=== PATIENT | female | born 1955 | race Caucasian/White ===

== ENCOUNTER 2019-09-03 11:50 | Day surgery (SDC) | payer OTHER, SELFPAY ==
--- NOTE | 2019-09-03 | PATH_ITS ---
[facility] Accession Number: [id number] . 01 Material submitted: . colon - DESCENDING COLON POLYP . 02 Diagnosis: Descending Colon, Polyp: Hyperplastic polyp. MRV 09/04/2019 1010 Local . 02 Electronically signed: . Destin Hernandez MD, PhD, Pathologist NPI- [id number] . 01 Gross description: . DESCENDING COLON POLYP: Received in formalin is 1 fragment(s) of negrete, soft tissue measuring 0.2 x 0.2 x 0.2 cm submitted entirely in 1 cassette(s) /[facility] 09/03/2019 2040 Local . 02 Pathologist provided ICD-10: K63.5 . 02 CPT . 897565 Performed at: 01 [facility] [address] [id number] MD Heriberto Cerda MD Phone: [phone] Performed at: 02 [facility] [place] [address] [place], [place] [id number] MD Yudelka Ortega MD Phone: [phone]
[2019-09-03 12:16] VITALS: BP 153/85; PULSE 71; RESP 16; TEMP 36.5; O2SAT 94; BMI 32.1
[2019-09-03] MEDS: SODIUM CHLORIDE 0.9% 1,000 ML 200 ML IV (12:22)
[2019-09-03] MEDS: MIDAZOLAM 5 MG/ML VIAL IV ×2 (13:13→13:25)
[2019-09-03] MEDS: fentaNYL 250 MCG/5 ML INJ IV (13:13)
--- NOTE | 2019-09-03 13:20 | PM.PREOP ---
Pre-operative Note Interval Note History & Physical reviewed/Exam performed by Physician: Yes Changes to H&P: No ASA Class (for procedural sedation): II
--- NOTE | 2019-09-03 13:41 | PM.OP.ENDO ---
Operative Date/Time/Diagnoses Date of procedure: 09/03/19 Procedure & Clinicians Study performed: Aborted EGD Moderate conscious sedation was administered by the endoscopy nurse and supervised by the endoscopist. The following parameters were monitored: Oxygen saturation, heart rate, blood pressure, and response to care. Sedation total: 6 mg midazolam, 100 mcg fentanyl Indications: Iron deficiency anemia, history of GERD Procedure Notes Procedure in detail: Prior to the procedure, history and physical was performed, and patient medications and allergies were reviewed. Preprocedure nursing history and assessment was reviewed. Patient identification and proposed procedure were verified by the physician and nurse in the procedure room. The physical status of the patient was reassessed after the procedure. After informed consent was obtained including risks, benefits, and alternatives, the scope was passed under direct vision. Throughout the procedure, the patient's blood pressure, pulse, and oxygen saturations were monitored continuously. The upper endoscope was introduced through the mouth and advanced to the body of the stomach. Retroflexion was performed in the stomach. The patient tolerated the procedure, but there was significant gagging and agitation during the EGD An irregular squamocolumnar junction was noted in the distal esophagus. The Z-line was located at 33 cm from the incisors. A large hiatal hernia was noted. A non bleeding erosion was noted in the fundus/body. Retroflexion revealed possible paraesophageal hernia. There was difficulty advancing the scope beyond the diaphragmatic pinch at the gastric body. A J-shaped configuration was noted. At this point, the procedure was aborted Impression: Irregular Z-line Large hiatal hernia. Possible coexistent paraesophageal hernia Non bleeding gastric erosion, possibly representing a Cole's erosion The distal stomach and duodenum were not evaluated Complications: other (No EBL. No complications) Post-procedure Plan for aftercare: Perform barium esophagram Repeat EGD with monitored anesthesia care Procedure with colonoscopy today
[2019-09-03 13:43] VITALS: BP 126/65; PULSE 72; RESP 17; TEMP 36.6; O2SAT 94
--- NOTE | 2019-09-03 13:47 | PM.OP.ENDO ---
Operative Date/Time/Diagnoses Date of procedure: 09/03/19 Procedure & Clinicians Study performed: Colonoscopy with cold biopsy Moderate conscious sedation was administered by the endoscopy nurse and supervised by the endoscopist. The following parameters were monitored: Oxygen saturation, heart rate, blood pressure, and response to care. Sedation total: 2 mg midazolam, 50 mcg fentanyl, plus medications given during EGD Indications: Iron deficiency anemia, personal history of colon polyps, last colonoscopy was in 2018 Procedure Notes Procedure in detail: Prior to the procedure, history and physical was performed, and patient medications and allergies were reviewed. Preprocedure nursing history and assessment was reviewed. Patient identification and proposed procedure were verified by the physician and nurse in the procedure room. The physical status of the patient was reassessed after the procedure. After informed consent was obtained including risks, benefits, and alternatives, the scope was passed under direct vision. Throughout the procedure, the patient's blood pressure, pulse, and oxygen saturations were monitored continuously. The colonoscope was introduced through the anus and advanced to the cecum as identified by the appendiceal orifice and ileocecal valve. The patient tolerated the procedure well. Bowel prep was deemed adequate to detect polyps greater than 5 mm. Perianal and digital rectal examinations were unremarkable. Retroflexion in the rectum was unrevealing. Scattered medium mouth diverticula were noted in the sigmoid colon. A 3 mm sessile polyp in the descending colon was removed with the Jumbo biopsy forceps and retrieved Impression: 3 mm descending colon polyp removed Sigmoid colon diverticulosis Sedation minutes: 28 Complications: other (EBL minimal. No complications) Post-procedure Plan for aftercare: Follow-up pathology results Repeat colonoscopy in 5 years for screening purposes Resume home medications High fiber diet Patient has a contact number available for emergencies. The signs and symptoms of potential delayed complications were discussed with the patient. Return to normal activities tomorrow. Written discharge instructions were provided to the patient. Discharge home with escort
[2019-09-03 13:48] VITALS: BP 113/65; PULSE 75; RESP 19; O2SAT 93
[2019-09-03 13:53] VITALS: BP 125/72; PULSE 73; RESP 13; TEMP 36.6; O2SAT 93
[2019-09-03 14:03] VITALS: BP 118/65; PULSE 69; RESP 18; O2SAT 93
[2019-09-03 14:36] VITALS: BP 121/72; PULSE 65; RESP 17; TEMP 36.6; O2SAT 97
== END 2019-09-03 14:39 | disposition home or self-care (01) ==
PROVIDERS: PCP Nurse Practitioner; Referring Provider Internal Medicine; Visit Provider Internal Medicine
PROC: 0DJ08ZZ Inspection of Upper Intestinal Tract, Via Natural or Artificial Opening Endoscopic (ICD-10-PCS; CPT 43235; principal; 2019-09-03 13:00)
PROC: 0DJD8ZZ Inspection of Lower Intestinal Tract, Via Natural or Artificial Opening Endoscopic (ICD-10-PCS; CPT 45378; 2019-09-03 13:00)
DX: Z12.11 Encounter for screening for malignant neoplasm of colon (principal); Z86.010 Personal history of colon polyps; K57.30 Diverticulosis of large intestine without perforation or abscess without bleeding; D50.9 Iron deficiency anemia, unspecified; K63.5 Polyp of colon; K44.9 Diaphragmatic hernia without obstruction or gangrene
CPT/HCPCS: 45380; 43235; J2250; J3010

== ENCOUNTER → 2020-02-08 09:49 | Outpatient (CLI) | payer MEDICARE, OTHER, SELFPAY ==
[2020-02-09 21:16] LABS: COVID19 Sendout Not Detected (Not Detect)
== END ==
PROVIDERS: PCP Nurse Practitioner; Visit Provider Physician Assistant
DX: Z11.59 Encounter for screening for other viral diseases (principal)
CPT/HCPCS: 87635

== ENCOUNTER 2020-02-11 12:52 | Day surgery (SDC) | payer MEDICARE, OTHER, SELFPAY ==
--- NOTE | 2020-02-11 | PATH_ITS ---
[facility] Accession Number: [id number] . 01 Material submitted: . gastrointestinal site - GASTRIC POLYP . 02 Diagnosis: Stomach, Polyp, Biopsy: Fundic gland polyp. No evidence of Helicobacter on H/E stain. Negative for intestinal metaplasia. Negative for dysplasia and malignancy. MRV 02/13/2020 1001 Local . 02 Electronically signed: . Yudelka Ortega MD, Pathologist NPI- [id number] . 01 Gross description: . GASTRIC POLYP: Received in formalin are 3 fragment(s) of negrete, soft tissue measuring 0.3 x 0.3 x 0.2 cm to 0.3 x 0.2 x 0.2 cm submitted entirely in 1 cassette(s) /[facility] 02/12/2020 0752 Local . 02 Pathologist provided ICD-10: D50.9 . 02 CPT . 556073 Performed at: 01 [facility] [address] [facility] [place], [place], [place] [id number] MD Heriberto Cerda MD Phone: [phone] Performed at: 02 [facility] [address] [place], [place] [id number] MD Yudelka Ortega MD Phone: [phone]
--- NOTE | 2020-02-11 12:34 | PM.HP.1 ---
History of Present Illness History of Present Illness Date Patient Seen: 02/11/20 Chief complaint: SDC Narrative: 64-year-old female with a history of iron deficiency anemia who underwent EGD and colonoscopy on 09/03/2019. Her EGD was aborted at that time due to agitation. There were findings of a large hiatal hernia and possible paraesophageal component. Patient History Family & Social History Social History: household members spouse Tobacco & Substance use: Smoking Status Never smoker alcohol intake current alcohol intake frequency a few times a week Substance Use Type does not use Meds Home Medications and Allergies Home Medications Medication Instructions Recorded Confirmed Type ferrous sulfate [iron] 325 mg PO DAILY 09/03/19 09/03/19 History mometasone 1 applic TOPICAL USEASDIRECTD 09/03/19 09/03/19 History Allergies Allergy/AdvReac Type Severity Reaction Status Date / Time cephalexin [From Keflex] Allergy Verified 02/11/20 13:37 hydrocodone [From Vicodin] Allergy ITCHING Verified 02/11/20 13:37 Exam Narrative Exam Narrative: General: Patient is obese, not in apparent distress Cardiovascular: Regular rate and rhythm, no murmurs, rubs, or gallops; no evidence of edema; no palpable abdominal aortic aneurysm Gastrointestinal: Normoactive bowel sounds, soft, nontender, nondistended, no rebound tenderness, no hepatosplenomegaly, no evidence of hernia Assessment & Plan Assessment & Plan narrative: 64-year-old female here for repeat upper endoscopy after her prior endoscopy in August 2019 was aborted due to agitation. This procedure will be done with monitored anesthesia care to facilitate her sedation. Regarding the procedure(s), the risks and potential complications, benefits, and alternatives (including not doing the procedure) were discussed with the patient. The risks include but are not limited to bleeding, splenic injury, infection, perforation which may require surgical intervention, missed lesions, and adverse reactions to sedative medicines. After a question and answer period, the patient agreed to proceed with the procedure(s) and gives informed consent.
[2020-02-11 13:38] VITALS: BP 131/76; PULSE 74; RESP 16; TEMP 36.8; O2SAT 99; BMI 33.0
[2020-02-11] MEDS: SODIUM CHLORIDE 0.9% 1,000 ML 70 ML IV (13:50)
--- NOTE | 2020-02-11 15:13 | P.OP.ENDO_ITS ---
Operative Date/Time/Diagnoses Date of procedure: 02/11/20 Procedure Notes Procedure in detail: Surgeon: Gaurav Fitzgerald MD Procedure: Esophagogastroduodenoscopy with biopsy Preoperative diagnosis: Iron deficiency anemia, large hiatal hernia on prior EGD Postoperative diagnosis: Gastric polyp status post biopsy, large hiatal hernia with Cole erosions Medications: Monitored anesthesia care due to failed conscious sedation Preanesthesia Assessment An H and P was performed/updated and the Px?s ASA class is 2. The procedure was discussed in detail with the patient. The potential risks and complications including infection, bleeding, missed lesions, perforation, need for surgery in case of perforation, prolonged hospital stay, and were explained. A brief question and answer period was allotted and once all questions were answered, informed consent was obtained. The patient was brought back to the procedure room and placed on standard monitoring. The patient?s vital signs were monitored continuously throughout the entire procedure. Prior to starting, a timeout was performed to confirm the patient?s identity, allergies, medications, and procedure. Procedure in detail The patient was placed in left lateral decubitus position and a bite block was inserted. The tip of the upper endoscope was placed into the mouth and advanced without difficulty under direct visualization into the esophagus. Esophagus: Mildly tortuous distal esophagus; otherwise unremarkable Stomach: Large 10 cm hiatal hernia with multiple Cole erosions; 6 mm sessile polyp in the gastric body status post biopsy Duodenum: Unremarkable The patient tolerated the procedure well and will be brought back to the recovery area to be discharged once criteria are met. Complications There were no complications and estimated blood loss was minimal. Recommendations: Resume previous diet Continue iron supplementation Continue other outPx medications Follow up pathology results Call our office ([facility]) to schedule follow-up with Dr. Melara, to discuss further management An emergency contact number was given to the patient for any complications related to the procedure
[2020-02-11 15:22] VITALS: BP 137/68; PULSE 69; RESP 18; TEMP 36.3; O2SAT 96
[2020-02-11 15:26] VITALS: BP 138/82; PULSE 64; RESP 13; TEMP 36.1; O2SAT 97
[2020-02-11 15:31] VITALS: BP 142/80; PULSE 68; RESP 19; TEMP 36; O2SAT 98
[2020-02-11 15:49] VITALS: BP 119/71; PULSE 67; RESP 14; TEMP 36.2; O2SAT 95
[2020-02-11 15:52] VITALS: BP 118/63; PULSE 67; RESP 14; O2SAT 97
== END 2020-02-11 16:13 | disposition home or self-care (01) ==
PROVIDERS: PCP Nurse Practitioner; Referring Provider Internal Medicine Gastroenterology; Visit Provider Internal Medicine Gastroenterology
PROC: 0DJ08ZZ Inspection of Upper Intestinal Tract, Via Natural or Artificial Opening Endoscopic (ICD-10-PCS; CPT 43235; principal; 2020-02-11 16:00)
DX: D50.9 Iron deficiency anemia, unspecified (principal); E66.9 Obesity, unspecified; K44.9 Diaphragmatic hernia without obstruction or gangrene; K25.9 Gastric ulcer, unspecified as acute or chronic, without hemorrhage or perforation
CPT/HCPCS: 43239; J2250; J2704; J3010

== ENCOUNTER → 2020-02-27 10:39 | Outpatient (CLI) | payer MEDICARE, OTHER, SELFPAY ==
--- NOTE | 2020-02-27 | DI.RAD.S_ITS ---
PROCEDURE: FL BARIUM SWALLOW INDICATIONS: Diaphragmatic hernia without obstruction or gangre COMPARISON: [facility], CR, XR FOOT 3+ VIEWS LEFT, 06/24/2019, 13:31. FINDINGS: Function: There is abnormal esophageal peristalsis with disorganized tertiary contractions. No elicited gastroesophageal reflux. There is slightly delayed transit time of a calibrated barium tablet gastroesophageal junction into the stomach. Morphology: Air-contrast images demonstrate normal mucosal morphology. There is mild narrowing in the distal esophagus at the gastroesophageal junction. No extrinsic mass effects, or diverticula. There is a large paraesophageal hiatal hernia. Approximately 50% of the stomach is in the thorax. IMPRESSION: 1. Moderate severe esophageal dysmotility. 2. Large paraesophageal hiatal hernia. 3. Mild narrowing at the gastroesophageal junction. There is mild obstruction of the the calibrated barium pill at the GE junction. Recommend endoscopic examination for further evaluation. Dictated by: Chad Cyr M.D. on 02/27/2020 at 14:01 Approved by: Chad Cyr M.D. on 02/27/2020 at 14:04
== END ==
PROVIDERS: PCP Nurse Practitioner; Referring Provider Nurse Practitioner; Visit Provider Internal Medicine
DX: K44.9 Diaphragmatic hernia without obstruction or gangrene (principal); K22.4 Dyskinesia of esophagus; K22.2 Esophageal obstruction; K21.9 Gastro-esophageal reflux disease without esophagitis
CPT/HCPCS: 74220

== ENCOUNTER → 2021-03-08 13:51 | Outpatient (CLI) | payer MEDICARE, OTHER, SELFPAY ==
[2021-03-08 18:10] LABS: Hematocrit 46.1 % (36-46); Hemoglobin 15.3 g/dL (12.0-16.0); Mean Corpuscular HGB Conc 33.2 % (30-36); Mean Corpuscular Hemoglobin 28.8 PG (26-34); Mean Corpuscular Volume 86.8 fL (80-100); Platelet Count 237 X10^3/uL (150-400); Red Cell Distribution Width 14.1 % (11.6-14.8); White Blood Cell Count 5.8 X10^3/uL (4.5-11.0)
[2021-03-08 18:26] LABS: HEMOLYSIS < 15 (0-50); Iron 91 ug/dL (37-170)
[2021-03-08 18:37] LABS: Percent Iron Saturation 31 % (15-50); Total Iron Binding Capacity 292 ug/dL (265-497); Transferrin 251 mg/dL (206-381)
[2021-03-08 19:06] LABS: Ferritin 74 ng/mL (11-264)
== END ==
PROVIDERS: PCP Registered Nurse Diabetes Educator; Referring Provider Registered Nurse Diabetes Educator; Visit Provider Registered Nurse Diabetes Educator
DX: D50.9 Iron deficiency anemia, unspecified (principal)
CPT/HCPCS: 36415; 82728; 83540; 83550; 85027

== ENCOUNTER → 2021-05-11 07:56 | Outpatient (CLI) | payer MEDICARE, OTHER, SELFPAY ==
[2021-05-11 09:23] LABS: Hematocrit 45.5 % (36-46); Hemoglobin 15.4 g/dL (12.0-16.0); Mean Corpuscular HGB Conc 33.9 % (30-36); Mean Corpuscular Hemoglobin 29.1 PG (26-34); Mean Corpuscular Volume 85.8 fL (80-100); Platelet Count 211 X10^3/uL (150-400); Red Cell Distribution Width 12.8 % (11.6-14.8)
[2021-05-11 10:16] LABS: TSH w/ Reflex to FT4 2.46 uIU/mL (0.47-4.68)
[2021-05-11 10:17] LABS: Alanine Aminotransferase 40 IU/L (<35); Albumin 4.4 g/dL (3.5-5.0); Albumin Globulin Ratio 1.8 (1.0-2.8); Alkaline Phosphatase 70 U/L (38-126); Aspartate Aminotransferase 29 IU/L (14-36); BUN Creatinine Ratio 23.1 (6-22); Bilirubin Total 0.7 mg/dL (0.2-1.3); Blood Urea Nitrogen 15 mg/dL (7-17); Calcium 9.8 mg/dL (8.4-10.2); Carbon Dioxide 28 mmol/L (22-32); Chloride 106 mmol/L (98-107); Cholesterol 197 mg/dL (140-199); Estimated Glomerular Filt Rate > 60.0 mL/min (>60); Globulin 2.5 g/dL (1.7-4.1); Glucose 95 mg/dL (80-110); HDL Cholesterol 63 mg/dL (40-60); HEMOLYSIS < 15 (0-50); LDL Cholesterol Calculated 110 mg/dL (<100); Potassium 4.2 mmol/L (3.4-5.1); Sodium 142 mmol/L (137-145); Total Protein 6.9 g/dL (6.3-8.2); Triglycerides 120 mg/dL (35-150)
== END ==
PROVIDERS: PCP Registered Nurse Diabetes Educator; Referring Provider Registered Nurse Diabetes Educator; Visit Provider Registered Nurse Diabetes Educator
DX: R73.01 Impaired fasting glucose (principal); D50.0 Iron deficiency anemia secondary to blood loss (chronic)
CPT/HCPCS: 36415; 80053; 80061; 84443; 85027

== ENCOUNTER → 2021-09-28 10:30 | Outpatient (CLI) | payer MEDICARE, OTHER, SELFPAY ==
[2021-09-28 11:53] LABS: Alanine Aminotransferase 31 IU/L (<35); Albumin 4.6 g/dL (3.5-5.0); Albumin Globulin Ratio 1.8 (1.0-2.8); Alkaline Phosphatase 66 U/L (38-126); Aspartate Aminotransferase 27 IU/L (14-36); Bilirubin Total 0.7 mg/dL (0.2-1.3); Bilirubin Unconjugated 0.8 mg/dL (0.0-1.1); Globulin 2.6 g/dL (1.7-4.1); HEMOLYSIS < 15 (0-50); Total Protein 7.2 g/dL (6.3-8.2)
== END ==
PROVIDERS: PCP Registered Nurse Diabetes Educator; Referring Provider Registered Nurse Diabetes Educator; Visit Provider Registered Nurse Diabetes Educator
DX: R74.8 Abnormal levels of other serum enzymes (principal)
CPT/HCPCS: 36415; 80076

== ENCOUNTER → 2021-11-23 08:34 | Outpatient (CLI) | payer MEDICARE, OTHER, SELFPAY ==
--- NOTE | 2021-11-23 | DI.RAD.S_ITS ---
PROCEDURE: FL UPPER GI SERIES INDICATIONS: Personal history of other diseases of the digestive system COMPARISON: None. FINDINGS: KUB: Preprocedural body shop mechanic film demonstrates a normal bowel gas pattern. No suspicious abdominal calcifications. Visualized solid organ contours appear normal. Bony structures appear unremarkable. Esophagus: Esophageal mucosa is normal on air-contrast views. On single-contrast views, there is normal esophageal peristalsis. No strictures, extrinsic mass effects, or diverticula. No hiatal hernia or elicited gastroesophageal reflux. There is normal transit of a calibrated barium tablet through the esophagus. Stomach: The stomach is normally distensible, with normal rugal fold thickness. No mucosal masses or ulcers. Pylorus and duodenal bulb appear normal in morphology. Duodenal folds are normal in thickness as well. IMPRESSION: Unremarkable upper GI examination. No evidence of hiatal hernia or reflux. Passage of a 12.5 mm barium tablet. No evidence of peptic ulcer disease. Dictated by: Zack Erazo M.D. on 11/23/2021 at 12:17 Approved by: Zack Erazo M.D. on 11/23/2021 at 12:17
== END ==
PROVIDERS: PCP Registered Nurse Diabetes Educator; Referring Provider Surgery; Visit Provider Surgery
DX: Z98.890 Other specified postprocedural states (principal); Z87.19 Personal history of other diseases of the digestive system
CPT/HCPCS: 74240

== ENCOUNTER → 2022-09-05 06:57 | Outpatient (CLI) | payer MEDICARE, OTHER, SELFPAY ==
[2022-09-05 07:47] LABS: Add Manual Diff / Slide Review NO; Basophils Absolute Auto 0 /uL (0-100); Basophils Percent Auto 0.4 % (0-2); Eosinophils Absolute Auto 100 /uL (0-450); Eosinophils Percent Auto 2.1 % (2-4); Hemoglobin 15.1 g/dL (12.0-16.0); Lymphocytes Absolute Auto 2300 /uL (1100-4500); Lymphocytes Percent Auto 51.2 % (25-40); Mean Corpuscular HGB Conc 33.6 % (30-36); Mean Corpuscular Hemoglobin 28.4 PG (26-34); Mean Corpuscular Volume 84.5 fL (80-100); Monocytes Absolute Auto 300 /uL (0-900); Monocytes Percent Auto 6.5 % (3-14); Neutrophils Absolute Auto 1800 /uL (1500-7000); Neutrophils Percent Auto 39.8 % (50-75); Platelet Count 215 X10^3/uL (150-400); Red Blood Cell Count 5.32 X10^6/uL (4.0-5.2); Red Cell Distribution Width 13.5 % (11.6-14.8); White Blood Cell Count 4.5 X10^3/uL (4.5-11.0)
[2022-09-05 08:02] LABS: Alanine Aminotransferase 31 IU/L (<35); Albumin 4.4 g/dL (3.5-5.0); Albumin Globulin Ratio 1.8 (1.0-2.8); Alkaline Phosphatase 67 U/L (38-126); Aspartate Aminotransferase 25 IU/L (14-36); BUN Creatinine Ratio 22.8 (6-22); Bilirubin Total 0.9 mg/dL (0.2-1.3); Blood Urea Nitrogen 13 mg/dL (7-17); Calcium 9.3 mg/dL (8.4-10.2); Carbon Dioxide 28 mmol/L (22-32); Chloride 104 mmol/L (98-107); Estimated Glomerular Filt Rate > 60 mL/min (>60); Globulin 2.5 g/dL (1.7-4.1); Glucose 97 mg/dL (80-110); HEMOLYSIS < 15 (0-50); Potassium 4.1 mmol/L (3.4-5.1); Sodium 140 mmol/L (137-145); Total Protein 6.9 g/dL (6.3-8.2)
== END ==
PROVIDERS: PCP Registered Nurse Diabetes Educator; Referring Provider Registered Nurse Diabetes Educator; Visit Provider Registered Nurse Diabetes Educator
DX: D64.9 Anemia, unspecified (principal); M17.11 Unilateral primary osteoarthritis, right knee; R73.01 Impaired fasting glucose
CPT/HCPCS: 36415; 80053; 85025

== ENCOUNTER → 2023-06-04 09:28 | Outpatient (CLI) | payer MEDICARE, OTHER, SELFPAY ==
--- NOTE | 2023-06-04 09:29 | DI.RAD.S_ITS ---
Bone Density Report Name: KAMILA DONALD Age: 67 Sex: Female Ethnicity: White Date of : 1955 Indication: postmenopausal; screening for osteoporosis; Referring Provider: RAMO STEWART Study: Bone densitometry was performed. Exam Date: June 04, 2023 Accession number: [id number] Bone Density: Region BMD T-score Z-score Classification AP Spine(L1-L4) 1.022 -0.2 1.8 Normal Femoral Neck (Left) 0.693 -1.4 0.3 Osteopenia Total Hip (Left) 0.864 -0.6 0.8 Normal Femoral Neck (Right) 0.653 -1.8 -0.1 Osteopenia Total Hip (Right) 0.757 -1.5 -0.1 Osteopenia Total Hip Mean 0.811 -1.1 0.4 Osteopenia World Health Organization criteria for BMD impression classify patients as: Normal (T-score at or above -1.0), Osteopenia (T-score between -1.0 and -2.5), or Osteoporosis (T-score at or below -2.5). 10-year Fracture Risk(1): Major Osteoporotic Fracture 10% Hip Fracture 1.5% Reported Risk Factors: [place] (), Neck BMD=0.653, BMI=30.4 (1) FRAX(R) Version 3.08. Fracture probability calculated for an untreated patient. Fracture probability may be lower if the patient has received treatment. Impression: The patient has low bone mass, based on the Right Femoral Neck T-score. The patient has an estimated ten-year risk of hip fracture of 1.5% and an estimated ten-year risk of major fracture of 10%, based on the WHO FRAX algorithm. Discussion: BONE DENSITY IS LOW AT ONE OR MORE SKELETAL SITES. This patient's lowest T-score is low at one or more skeletal sites. It meets the World Health Organization's (WHO) criteria for low bone mass (T-score between -1.0 and -2.5). The patient's 10-year risk of fracture as calculated by FRAX is less than the threshold where pharmacological therapy is recommended by the National Osteoporosis Foundation (NOF). However, all treatment decisions require clinical judgment and consideration of individual patient factors, including patient preferences, comorbidities, previous drug use, risk factors not captured in the FRAX model (e.g., frailty, falls, vitamin D deficiency, increased bone turnover, interval significant decline in bone density) and possible under or overestimation of fracture risk by FRAX. The patient should follow a healthful lifestyle (good nutrition with adequate calcium and vitamin D, and appropriate weight-bearing exercise). Follow-Up: Consider repeating this study in 2 to 3 years to reassess this patient's status, or sooner if there is some new clinical indication. Reported by: NGOC OSBORN M.D. on 06/04/2023 10:07:00 AM.
== END ==
PROVIDERS: PCP Registered Nurse Diabetes Educator; Referring Provider Registered Nurse Diabetes Educator; Visit Provider Registered Nurse Diabetes Educator
DX: Z78.0 Asymptomatic menopausal state (principal); M85.851 Other specified disorders of bone density and structure, right thigh
CPT/HCPCS: 77080

== ENCOUNTER → 2023-07-26 13:05 | Outpatient (CLI) | payer MEDICARE, OTHER, SELFPAY | LOC: PHYS 13:06 | PROVIDERS: Family Provider Registered Nurse Diabetes Educator; PCP Registered Nurse Diabetes Educator; Referring Provider Registered Nurse Diabetes Educator; Visit Provider Registered Nurse Diabetes Educator | DX: G57.11 Meralgia paresthetica, right lower limb (principal) | CPT/HCPCS: 95886; 95909 ==

== ENCOUNTER → 2024-03-07 12:07 | Outpatient (CLI) | payer MEDICARE, OTHER, SELFPAY ==
--- NOTE | 2024-03-07 | DI.US.S_ITS ---
PROCEDURE: US PELVIC LIMITED INDICATIONS: MOBILE RIGHT LABIA PALPABLE LUMP TECHNIQUE: Real-time transabdominal scanning was performed of the labia COMPARISON: None. FINDINGS: Hypoechoic nodule with internal vascularity at the palpable area of concern in the right labia measures 6 x 5 x 4 mm IMPRESSION: Nonspecific subcutaneous nodule with internal vascularity in the right labia Approved by: Tyshawn Baptiste M.D. on 03/07/2024 at 17:00
== END ==
PROVIDERS: Family Provider Registered Nurse Diabetes Educator; PCP Registered Nurse Diabetes Educator; Referring Provider Physician Assistant; Visit Provider Physician Assistant
DX: N90.9 Noninflammatory disorder of vulva and perineum, unspecified (principal); R19.09 Other intra-abdominal and pelvic swelling, mass and lump
CPT/HCPCS: 76857

== ENCOUNTER → 2024-04-26 08:11 | Outpatient (CLI) | payer MEDICARE, OTHER, SELFPAY ==
[2024-04-26 09:35] LABS: Hematocrit 46.3 % (36-46); Hemoglobin 15.7 g/dL (12.0-16.0); Mean Corpuscular Hemoglobin 29.4 PG (26-34); Mean Corpuscular Volume 86.5 fL (80-100); Platelet Count 211 X10^3/uL (150-400); Red Blood Cell Count 5.36 X10^6/uL (4.0-5.2); Red Cell Distribution Width 12.9 % (11.6-14.8); White Blood Cell Count 6.5 X10^3/uL (4.5-11.0)
[2024-04-26 10:01] LABS: Alanine Aminotransferase 20 IU/L (<35); Albumin 4.2 g/dL (3.5-5.0); Albumin Globulin Ratio 1.6 (1.0-2.8); Alkaline Phosphatase 67 U/L (38-126); Aspartate Aminotransferase 22 IU/L (14-36); BUN Creatinine Ratio 27.3 (6-22); Bilirubin Total 0.9 mg/dL (0.2-1.3); Blood Urea Nitrogen 18 mg/dL (7-17); Carbon Dioxide 28 mmol/L (22-32); Chloride 105 mmol/L (98-107); Cholesterol 177 mg/dL (140-199); Estimated Glomerular Filt Rate > 60 mL/min (>60); Globulin 2.7 g/dL (1.7-4.1); Glucose 103 mg/dL (80-110); HDL Cholesterol 61 mg/dL (40-60); HEMOLYSIS < 15 (0-50); LDL Cholesterol Calculated 92 mg/dL (<100); Sodium 138 mmol/L (137-145); Total Protein 6.9 g/dL (6.3-8.2); Triglycerides 120 mg/dL (35-150)
[2024-04-26 10:15] LABS: Vitamin D 25 Hydroxy (D3) 54.6 ng/mL (30.0-100.0)
== END ==
PROVIDERS: Family Provider Registered Nurse Diabetes Educator; PCP Registered Nurse Diabetes Educator; Referring Provider Registered Nurse Diabetes Educator; Visit Provider Registered Nurse Diabetes Educator
DX: D64.9 Anemia, unspecified (principal); E78.5 Hyperlipidemia, unspecified; M85.80 Other specified disorders of bone density and structure, unspecified site; R73.01 Impaired fasting glucose
CPT/HCPCS: 36415; 80053; 80061; 82306; 85027

== ENCOUNTER → 2024-07-10 12:24 | Outpatient (CLI) | payer MEDICARE, OTHER, SELFPAY ==
--- NOTE | 2024-07-10 12:25 | DI.MG.S_ITS ---
BILATERAL DIGITAL SCREENING MAMMOGRAM 3D/2D WITH CAD: 07/10/2024 CLINICAL: Routine screening. Comparison is made to exams dated: 08/23/2022 mammogram, 07/19/2020 mammogram, and 07/17/2019 mammogram - [facility]. The breasts are almost entirely fatty (category a/<25% glandular tissue). Current study was also evaluated with a Computer Aided Detection (CAD) system. No significant masses, calcifications, or other findings are seen in either breast. There has been no significant interval change. IMPRESSION: NEGATIVE There is no mammographic evidence of malignancy. A 1 year screening mammogram is recommended. Based on the Tyrer Cuzick model (a risk assessment model) the patient's lifetime risk is 4.4% and her 10 year risk is 2.6%. According to the ACR, ACS, and NCCN guidelines, an annual breast MRI exam along with mammogram is recommended if the patient's lifetime risk is 20% or greater. This exam was interpreted at Station ID: [id number]. NOTE: For mammograms, a report in lay terms will be sent to the patient. Approximately 15% of breast malignancies will not be visualized mammographically. In the management of a palpable breast mass, a negative mammogram must not discourage biopsy of a clinically suspicious lesion. Electronically Signed By: Fadia dong/chyna:07/10/2024 16:18:24 letter sent: Normal Exam ACR BI-RADS Category 1: Negative
== END ==
PROVIDERS: Family Provider Registered Nurse Diabetes Educator; PCP Registered Nurse Diabetes Educator; Referring Provider Registered Nurse Diabetes Educator; Visit Provider Registered Nurse Diabetes Educator
DX: Z12.31 Encounter for screening mammogram for malignant neoplasm of breast (principal); R92.313 Mammographic fatty tissue density, bilateral breasts
CPT/HCPCS: 77063; 77067

== ENCOUNTER 2024-09-11 07:30 | Day surgery (SDC) | payer MEDICARE, OTHER, SELFPAY ==
--- NOTE | 2024-09-11 | PATH_ITS ---
[facility] Accession Number: [id number] No. of containers..01 Tissue . 01 Material submitted: . cecum - CECAL POLYP . 01 Diagnosis: CECAL POLYP: Colonic mucosa with prominent benign lymphoid aggregate. Negative for serrated lesion, dysplasia, or malignancy. [facility] 09/12/2024 1123 Local . 01 Electronically signed: . Destin Hernandez MD, PhD, Pathologist NPI- [id number] . 01 Gross description: . CECAL POLYP: Received in formalin is 1 fragment(s) of negrete, soft tissue measuring 0.6 x 0.6 x 0.3 cm submitted entirely in 1 cassette(s) /[facility] 09/12/2024 0147 Local . 01 Pathologist provided ICD-10: K63.5 . 01 CPT . 673432 Specimen Comment: A courtesy copy of this report has been sent to [phone] Performed at: 01 [facility] [address], [place], [place] [id number] MD Heriberto Cerda MD Phone: [phone]
[2024-09-11 08:15] VITALS: BP 133/82; PULSE 83; RESP 17; TEMP 36.2; O2SAT 98
[2024-09-11] MEDS: LACTATED RINGERS 1,000 ML 42 ML IV (08:24)
--- NOTE | 2024-09-11 08:28 | PM.HP.IH.1 ---
History of Present Illness History of Present Illness Date Patient Seen: 09/11/24 Time Patient Seen: 08:28 Chief complaint: [facility] Narrative: Leia is a 68-year-old woman who had a colonoscopy here with Dr. Fitzgerald 5 years ago. There were no polyps at that time but she did have polyps removed on a prior colonoscopy and was on a 3 year interval. She has no known family history of colon cancer. [facility]LY [facility], [facility] Medical History (Updated 07/10/24 @ 13:26 by FIOR Davis) Other low back pain Osteopenia of multiple sites Prophylactic antibiotic for dental procedure indicated due to prior joint replacement Osteoarthritis of right knee Meralgia paresthetica Dyslipidemia Foot drop, left Wears glasses Plantar warts Osteoarthritis (~2010) Histoplasmosis Foot pain (~2004) Anemia (~2018) Vertigo (~2009) Genital warts (~1987) Pruritic rash Impaired fasting blood sugar History of basal cell carcinoma History of colon polyps Surgical History Anesthesia History of esophageal hernia repair Family History Father History of blood clots Mother Cancer Brother COVID-19 Social History household members: spouse Smoking Status: Never smoker alcohol intake: current Meds Home Medications and Allergies Home Medications Medication Instructions Recorded Confirmed Type cholecalciferol (vitamin D3) 50 100 mcg (2 x 50 mcg (2,000 unit)) 03/08/21 09/11/24 Rx mcg (2,000 unit) capsule PO DAILY #1 cap ascorbate calcium (vitamin C) 500 1 g PO DAILY 07/05/21 09/11/24 History mg tablet omega-3 fatty acids-fish oil 300 cap PO 09/12/22 07/07/24 History mg-500 mg capsule (Fish Oil) calcium carbonate (Tums) 200 mg PO BID 04/30/24 09/11/24 History mometasone 0.1 % topical solution 1 applic topical USEASDIRECTD PRN 06/29/24 09/11/24 Rx skin irritation #30 mL sodium,potassium,mag sulfates 17.5 See Rx Instructions PO .COMPLEX 07/17/24 09/11/24 Rx gram-3.13 gram-1.6 gram oral soln #354 mL (Suprep Bowel Prep Kit) Allergies Allergy/AdvReac Type Severity Reaction Status Date / Time cephalexin [From Keflex] Allergy Verified 09/11/24 07:52 hydrocodone [From Vicodin] Allergy ITCHING Verified 09/11/24 07:52 bacitracin [From Cortisporin] AdvReac Verified 09/11/24 07:53 hydrocortisone AdvReac Verified 09/11/24 07:53 [From Cortisporin] neomycin [From Cortisporin] AdvReac Verified 09/11/24 07:53 polymyxin B AdvReac Verified 09/11/24 07:53 [From Cortisporin] Exam Vital Signs (past 8 hours): - 09/11/24 08:15 Temperature 97.2 F L Pulse Rate 83 Respiratory Rate 17 Blood Pressure 133/82 Pulse Oximetry 98 Oxygen Delivery Method Room Air Oxygen Delivery Method Room Air Const General: healthy appearing Assessment & Plan Assessment and plan (1) History of colon polyps: Status: Acute Plan Colonoscopy Time-Based Coding :: [TOTAL MINUTES] spent with patient and on the chart (including review of chart, obtaining history, exam, reviewing outside data, placing orders, documenting exam and treatment plan, and counseling patient) on [DATE]. PROFEE Manager Environmental Health Document charge(s): No
[2024-09-11 09:13] VITALS: BP 101/61; PULSE 70; RESP 12; TEMP 36.1; O2SAT 92
--- NOTE | 2024-09-11 09:13 | PM.OP.COLON ---
Operative Date/Time/Diagnoses Date of procedure: 09/11/24 Time of procedure: 09:13 Pre-op diagnosis: History of polyps Post-op diagnosis: same Procedure & Clinicians Study performed: Colonoscopy Same procedure as scheduled: Yes Surgeon: Amarjit Ma Procedure Notes Procedure in detail: Surgeon: Amarjit Ma MD Anesthesia: Kiara Allen DO Procedure: The patient was brought to the endoscopy suite, placed in left lateral decubitus position. The patient was connected to monitoring devices. A time-out was performed. Sedation was administered. Once the patient was adequately sedated, a digital rectal exam was performed and was normal. The scope was then inserted and advanced to the cecum where the appendiceal orifice was identified and photographed. The scope was then slowly withdrawn over greater than 6 minutes. The mucosa was thoroughly inspected. There was a 4 mm polyp in the cecum removed with a cold snare. The scope was retroflexed in the rectum. No other abnormalities were found. The scope was straightened and removed. The patient was awakened and brought to recovery. Scope withdrawal time: 16 minutes Sedation time: 24 minutes EBL: 2 mL Findings: Small cecal polyp Post-procedure Disposition: PACU
[2024-09-11 09:19] VITALS: BP 109/33; PULSE 74; RESP 8; O2SAT 97
[2024-09-11 09:27] VITALS: BP 116/65; PULSE 62; RESP 13; TEMP 36.1; O2SAT 96
[2024-09-11 09:32] VITALS: BP 113/66; PULSE 61
== END 2024-09-11 09:36 | disposition home or self-care (01) ==
PROVIDERS: Family Provider Registered Nurse Diabetes Educator; PCP Registered Nurse Diabetes Educator; Referring Provider Surgery; Visit Provider Surgery
PROC: 0DJD8ZZ Inspection of Lower Intestinal Tract, Via Natural or Artificial Opening Endoscopic (ICD-10-PCS; CPT 45378; principal; 2024-09-11 09:00)
DX: Z12.11 Encounter for screening for malignant neoplasm of colon (principal); Z86.0100 Personal history of colon polyps, unspecified; K63.5 Polyp of colon
CPT/HCPCS: 45385; J2704

== ENCOUNTER → 2025-05-02 08:06 | Outpatient (CLI) | payer MEDICARE, OTHER, SELFPAY ==
[2025-05-02 09:34] LABS: Hematocrit 44.4 % (36-46); Hemoglobin 15.0 g/dL (12.0-16.0); Mean Corpuscular HGB Conc 33.9 % (30-36); Mean Corpuscular Hemoglobin 28.3 PG (26-34); Mean Corpuscular Volume 83.5 fL (80-100); Platelet Count 222 X10^3/uL (150-400)
[2025-05-02 09:58] LABS: Albumin 4.4 g/dL (3.5-5.0); Albumin Globulin Ratio 1.7 (1.0-2.8); Carbon Dioxide 28 mmol/L (22-32); Globulin 2.6 g/dL (1.7-4.1); HEMOLYSIS < 15 (0-50); Total Protein 7.0 g/dL (6.3-8.2)
[2025-05-02 10:13] LABS: Vitamin D 25 Hydroxy (D3) 60.5 ng/mL (30.0-100.0)
[2025-05-02 10:37] LABS: Alanine Aminotransferase 36 IU/L (<35); Alkaline Phosphatase 72 U/L (38-126); Blood Urea Nitrogen 16 mg/dL (7-17); Calcium 9.8 mg/dL (8.4-10.2); Chloride 106 mmol/L (98-107); Cholesterol 208 mg/dL (140-199); Estimated Glomerular Filt Rate > 60 mL/min (>60); Glucose 97 mg/dL (70-99); HDL Cholesterol 63 mg/dL (40-60); Potassium 4.3 mmol/L (3.4-5.1); Sodium 141 mmol/L (137-145); Triglycerides 102 mg/dL (35-150)
== END ==
PROVIDERS: Family Provider Registered Nurse Diabetes Educator; PCP Registered Nurse Diabetes Educator; Referring Provider Registered Nurse Diabetes Educator; Visit Provider Registered Nurse Diabetes Educator
DX: E78.5 Hyperlipidemia, unspecified (principal); M85.89 Other specified disorders of bone density and structure, multiple sites; R73.01 Impaired fasting glucose; D64.9 Anemia, unspecified; L50.9 Urticaria, unspecified
CPT/HCPCS: 36415; 80053; 80061; 82306; 85027